=== PATIENT | female | born 1965 | race Caucasian/White ===

== ENCOUNTER 2017-12-06 12:00 | Emergency (ER) | payer OTHER, SELFPAY ==
[2017-12-06 12:01] VITALS: BP 164/111; PULSE 101; RESP 18; TEMP 36.6; O2SAT 98; BMI 38.6
[2017-12-06 12:08] VITALS: BP 161/111; PULSE 101; RESP 14; O2SAT 99
--- NOTE | 2017-12-06 12:12 | RAD_ITS ---
STUDY: X-RAY - LEFT KNEE REASON FOR EXAM: Female, 52 years old. Pain following trauma. TECHNIQUE: 4 view(s) of the knee. COMPARISON: None. FINDINGS: Normal visualized distal femur. Normal visualized proximal tibia and fibula. Normal proximal tibiofibular articulation. Normal medial femorotibial compartment. Normal lateral femorotibial compartment. There is mild degenerative arthrosis of the patellofemoral articulation. Small joint effusion. RAD/Knee 4 or More Views IMPRESSION: Small joint effusion. Electronically Signed: Fernandez Benitez MD at 13:04 EST Tel [phone], Service support ,
--- NOTE | 2017-12-06 12:12 | ED.VISSUMM ---
- ER Visit Summary Date of Service: 12/06/17 Chief Complaint: Left knee injury History of Present Illness: The patient is a 52 F with left knee injury. The patient was in her normal state of health. She states that she was walking out of her shower. She stepped on a wet washcloth. She fell with her left leg twisted underneath her. He felt something pop in the left knee. She really had no significant pain. However, since then, with any attempted bearing weight on the knee she feels like it is giving out. She has been unable to walk because of this feeling of looseness. She denies any other injury. The patient is otherwise healthy. Physical Examination: Exam is relatively unremarkable. There is no gross laxity of the knee. Patient does have pain with extension over the MCL and some pain with palpation on the medial joint line. Anterior and posterior drawer are preserved. There is no effusion. Extension is preserved. She does have normal pulses. Skin is intact. There is no palpable cords. Test Results: [] Emergency Department Course and Treatment: The patient's exam was concerning for an MCL and medial meniscus injury. There is no gross laxity. Her extension is preserved. I did obtain plain films. There was no evidence of acute fracture dislocation. The patient will be placed in a knee immobilizer and given crutches. She will be given a short course of analgesics and orthopedic follow-up. The patient be discharged home. She is comfortable with this plan of care. Treatment Plan: [] Disposition: Discharge Impression: 1. Left knee sprain-suspect medial meniscus and MCL injury This note was generated with [employer] dictation software. It may contain incorrect words, spelling, and punctuation that were not noted in review of the chart prior to signing ED Disposition - Plan for ED Patient: Chief Complaint: Lower Extremity Injury Instructions: ED Sprain Knee Prescriptions: Oxycodone HCl/Acetaminophen [Percocet 5/325] 1 tab PO Q6H PRN PRN 3 Days #12 tab PRN Reason: Pain Referrals: Temo Mcgovern DO [STAFF PHYSICIAN] -
[2017-12-06 13:17] VITALS: BP 148/70; PULSE 85; RESP 14; O2SAT 99
== END 2017-12-06 13:46 | disposition home or self-care (01) ==
LOC: ED 12:18
PROVIDERS: Emergency Provider Emergency Medicine; Family Provider Student in an Organized Health Care Education/Training Program; PCP Student in an Organized Health Care Education/Training Program
DX: S83.92XA Sprain of unspecified site of left knee, initial encounter (principal); W01.0XXA Fall on same level from slipping, tripping and stumbling without subsequent striking against object, initial encounter; Y93.E1 Activity, personal bathing and showering; Y92.002 Bathroom of unspecified non-institutional (private) residence as the place of occurrence of the external cause; Y99.9 Unspecified external cause status; I10 Essential (primary) hypertension
CPT/HCPCS: 73564; 99284

== ENCOUNTER 2021-08-27 13:23 | Emergency (ER) | payer OTHER, SELFPAY ==
[2021-08-27] VITALS (7 sets, daily range): BP systolic 140–168; BP diastolic 90–101; PULSE 89–95; RESP 18–30; TEMP 37.4; O2SAT 83–94; BMI 39.4
--- NOTE | 2021-08-27 13:45 | ED.VIS.DYS ---
HPI History of Present Illness Chief Complaint: Shortness of Breath Informant: patient and family Narrative Narrative: 55-year-old female presents to the emergency department with shortness of breath and low oxygen levels. Patient states that she tested positive for COVID-19 on home test last Sunday. She states that she definitely felt ill on Sunday but earlier in the week also had a headache and some sinus congestion. The patient states her oxygen level was 81% when she woke this morning and is only been able to get it to the mid 80s. She denies any known lung conditions. She has a history of hypertension but has not been taking her Zestoretic because she has not been eating and drinking as well. Cough is nonproductive. She has had some vomiting and diarrhea. Not vaccinated against Covid PFSH PFSH Home Medications lisinopril-hydrochlorothiazide [Zestoretic] 1 ea PO DAILY 08/11/15 [History Last Taken 08/11/15] meloxicam 1 tab PO DAILY 12/06/17 [History Last Taken Unknown] esomeprazole magnesium 40 mg PO DAILY 08/27/21 [History Last Taken Unknown] metoprolol succinate 12.5 mg PO DAILY 08/27/21 [History Last Taken Unknown] Allergy/AdvReac Type Severity Reaction Status Date / Time acetaminophen [From Vicodin] Allergy Hives Verified 08/27/21 13:27 hydrocodone [From Vicodin] Allergy Hives Verified 08/27/21 13:27 Surgical History History of cholecystectomy History of hysterectomy Social History (Updated 08/27/21 @ 13:[address] Lew Gilmore, ) Smoking Status: Never smoker substance use type: does not use ROS ROS ED Constitutional Constitutional ED: Reports chills, fever(s) and sweats; Denies weight loss Eyes Eyes: Denies change in vision or diplopia ENT ENT ED: Reports rhinorrhea; Denies ear pain or sore throat Cardiovascular Cardiovascular: Denies chest pain, orthopnea, palpitations or racing heartbeat Respiratory/Chest Respiratory/Chest: Reports cough, dyspnea and dyspnea on exertion; Denies orthopnea Gastrointestinal Gastrointestinal: Reports diarrhea, nausea and vomiting; Denies abdominal pain Genitourinary Genitourinary ED: Denies dysuria, hematuria or urinary frequency Musculoskeletal Musculoskeletal: Reports myalgias; Denies arthralgias Integumentary Denies abscess or rash Neurologic Neurologic: Reports headache(s); Denies weakness Psychiatric Psychiatric: Denies anxiety, depression, suicidal ideation or suicidal thoughts Endocrine Endocrinology: Denies polydipsia, polyphagia or polyuria Allergic/Immunologic Allergic/Immunologic ED: Denies mouth swelling, tongue swelling or urticaria EXAM Physical Exam Const Vital Signs: 08/27/21 13:25 08/27/21 13:44 08/27/21 13:45 Temperature 99.3 F H 99.3 F H Temperature Source Oral Oral Pulse Rate 89 95 90 Respiratory Rate 18 30 H 23 H Respiratory Effort Respiratory Depth Respiratory Pattern Blood Pressure 140/91 H 152/98 H 152/98 H Blood Pressure Mean 107 116 116 Pulse Ox 87 94 93 Pulse Ox [AMBULATING on Room Air] Pulse Ox [AMBULATING with Oxygen #1] Pulse Ox [AMBULATING with Oxygen #2] Pulse Ox [AMBULATING with Oxygen #3] Pulse Ox [At REST on Room Air] Pulse Ox [At REST with Oxygen] Oxygen Delivery Method Room Air Nasal Cannula Room Air Oxygen Flow Rate (L/min) 2 Oxygen Flow Rate (L/min) [AMBULATING on Room Air] Oxygen Flow Rate (L/min) [AMBULATING with Oxygen #1] Oxygen Flow Rate (L/min) [AMBULATING with Oxygen #2] Oxygen Flow Rate (L/min) [AMBULATING with Oxygen #3] Oxygen Flow Rate (L/min) [At REST on Room Air] Oxygen Flow Rate (L/min) [At REST with Oxygen] 08/27/21 13:51 08/27/21 13:53 08/27/21 15:57 Temperature Temperature Source Pulse Rate 90 Respiratory Rate 26 H Respiratory Effort Short of Breath Respiratory Depth Normal Respiratory Pattern Normal Blood Pressure 152/90 H Blood Pressure Mean 110 Pulse Ox 94 Pulse Ox [AMBULATING on Room Air] 83 Pulse Ox [AMBULATING with Oxygen #1] 88 Pulse Ox [AMBULATING with Oxygen #2] 89 Pulse Ox [AMBULATING with Oxygen #3] 90 Pulse Ox [At REST on Room Air] 87 Pulse Ox [At REST with Oxygen] 93 Oxygen Delivery Method Nasal Cannula Nasal Cannula Oxygen Flow Rate (L/min) 2 2 Oxygen Flow Rate (L/min) [AMBULATING on Room Air] 0 Oxygen Flow Rate (L/min) [AMBULATING with Oxygen #1] 2 Oxygen Flow Rate (L/min) [AMBULATING with Oxygen #2] 3 Oxygen Flow Rate (L/min) [AMBULATING with Oxygen #3] 4 Oxygen Flow Rate (L/min) [At REST on Room Air] 0 Oxygen Flow Rate (L/min) [At REST with Oxygen] 2 Positive well nourished, well developed and obese General Appearance ED: well developed Nutritional Appearance: obese HEENT Reports normocephalic, head/scalp atraumatic, TM's clear and moist mucous membranes atraumatic Tympanic Membrane ED: Yes TM's clear Eyes PERRL and EOMs intact bilaterally Neck no lymphadenopathy, supple and no JVD Resp normal respiratory effort and clear to auscultation bilaterally Cardio regular rate, regular rhythm and no murmurs GI normal to inspection, nondistended, normoactive bowel sounds and non-tender Palpation: soft Back/Spine no CVA tenderness, normal ROM and normal to inspection Extremity normal to inspection General Extremety ED: Negative for edema General Extremity: Negative for edema Neuro oriented x3 and CN's II-XII intact bilaterally Sensorium / Orientation: alert Motor Exam: strength 5/5 throughout Psych mental status grossly normal Mood & Affect: Negative for depressed or tearful Skin no rashes or lesions noted and no wounds MDM MDM MDM Narrative Medical decision making narrative: CBC showed white count 9.2. Glucose 115 AST of 43 creatinine 0.73. CTA of the chest was obtained. This showed diffuse pneumonitis associated with Covid and no pulmonary embolism. Patient received a dose of Decadron. Ambulation testing shows the patient to be 90% on 4 L. The patient does not wish to stay in the hospital. She does not wish remdesivir. She does not wish mechanical ventilation. She would like to have home oxygen set up for her and I can write for some Decadron. Patient was advised that my opinion is that she should stay in the hospital. However the patient appears to have the capacity to make this decision so she can sign out AMA. Lab Data Attestation: I reviewed the patient's lab results. Labs: Laboratory Results - last 24 hr 08/27/21 08/27/21 14:20 14:20 WBC 9.2 RBC 4.58 Hgb 14.5 Hct 41.8 MCV 91.3 MCH 31.7 MCHC 34.7 RDW Std Deviation 42.6 RDW Coeff of Tosin 12.6 Plt Count 265 MPV 9.7 Immature Gran % (Auto) 0.300 Neut % (Auto) 86.5 H Lymph % (Auto) 8.6 L Caroline % (Auto) 4.4 Eos % (Auto) 0.0 Baso % (Auto) 0.2 Absolute Neuts (auto) 7.9 H Absolute Lymphs (auto) 0.79 L Nucleated RBC % 0 Sodium 135 L Potassium 3.5 Chloride 98 Carbon Dioxide 30.0 Anion Gap 7 BUN 16 Creatinine 0.73 Estim Creat Clear Calc 74.31 Est GFR (MDRD) Af Amer 106 Est GFR (MDRD) Non-Af 87 BUN/Creatinine Ratio 21.9 H Glucose 115 H Calcium 8.7 Total Bilirubin 0.70 AST 43 H ALT 33 Alkaline Phosphatase 104 Troponin I High Sens 6 Total Protein 8.0 Albumin 3.3 Globulin 4.7 H Albumin/Globulin Ratio 0.7 L Radiography Diagnostic Testing: Clinical Impression(s) from Imaging Studies Chest CTA 08/27/21 13:47 IMPRESSION: Bilateral multifocal pneumonia. No finding of central or segmental pulmonary embolus. Respiratory motion complicates evaluation for subsegmental pulmonary embolus. Electronically Signed: Bunny Ramos MD at 15:58 EDT Tel , Service support , Discharge Plan Triage Chief Complaint: Shortness of Breath ED Provider: Lew Gilmore Dx/Rx/DC Orders Clinical Impression: COVID-19, Acute hypoxemic respiratory failure due to COVID-19 Instructions: Coronavirus Disease 2019 (COVID-19): Caring for Yourself or Others Prescriptions: No Action lisinopril-hydrochlorothiazide [Zestoretic] 1 EACH tablet 1 ea PO DAILY RF: 0 meloxicam 15 MG tablet 1 tab PO DAILY RF: 0 esomeprazole magnesium 40 mg capsule,delayed release(DR/EC) 40 mg PO DAILY RF: 0 metoprolol succinate 25 mg tablet extended release 24 hr 12.5 mg PO DAILY RF: 0 Primary Care Provider: Jeff Santiago Referrals: Jeff Santiago DO [Primary Care Provider] - Disposition Disposition: Against Medical Advice Capacity Capacity Assessment Tool Can the patient make a choice & communicate that choice?: Yes Can the patient understand benefits, risks and alternatives?: Yes Can the patient make a logical, rational choice?: Yes Is the choice the patient makes consistent w/ their values?: Yes Is there an impending, emergent risk to the patient?: Yes Does the patient have an Advance Directive?: Yes Is there a Surrogate Available?: No i.e. HCPOA: No i.e. close relative (spouse, child, parent, sibling)?: Comment (They are in agreement and support her decision)
--- NOTE | 2021-08-27 13:47 | CT_ITS ---
STUDY: CTA CHEST REASON FOR EXAM: Female, 55 years old. Covid 19 pulmonary embolism RADIATION DOSAGE (If Supplied By Facility): CTDIvol = ( 12.52 ) mGy, DLP = ( 479.21 ) mGycm TECHNIQUE: The examination was performed with the intravenous administration of IV 100mL Isovue-370. Post-processing of the angiographic images was performed, with multiplanar reformation and 3D reconstruction. Individualized dose optimization techniques were used for this CT. COMPARISON: None. FINDINGS: Normal enhancement of the main pulmonary artery and right and left pulmonary arteries. Normal enhancement of the bilateral peripheral pulmonary arteries. Respiratory motion complicates evaluation of the subsegmental pulmonary arteries. There is no demonstrated central or segmental pulmonary embolism. Normal thoracic aorta and visualized great vessels. There is no demonstrated aortic dissection. Normal heart and pericardium. Prominent mediastinal and hilar lymph nodes are probably reactive. Normal visualized trachea and bronchi. The lungs are well expanded. Diffuse groundglass densities throughout both lungs Normal pleura. Normal chest wall structures. Degenerative changes in the thoracic spine. Normal visualized upper abdomen. CT/CTA Chest W/WO Contrast IMPRESSION: Bilateral multifocal pneumonia. No finding of central or segmental pulmonary embolus. Respiratory motion complicates evaluation for subsegmental pulmonary embolus. Electronically Signed: Bunny Ramos MD at 15:58 EDT Tel , Service support ,
[2021-08-27 14:31] LABS: Absolute Lymphocyte Count 0.79 X10^3/uL (0.83-4.51); Absolute Neutrophil Count 7.9 X10^3/uL (2.0-7.7); Basophil# 0.02 X10^3/uL; Basophil% 0.2 % (0-1); Hematocrit 41.8 % (37-47); Hemoglobin 14.5 g/dL (12.0-15.0); Lymphocyte # 0.79 X10^3/ul (0.83-4.51); Lymphocyte % 8.6 % (19-41); Mean Corp Hgb Conc 34.7 g/dL (32-36); Mean Corpuscular Hgb 31.7 pg (27.0-32.0); Mean Corpuscular Volume 91.3 fL (81-99); Mean Platelet Vol. 9.7 fl (6.2-12.0); Monocyte% 4.4 % (0-10); NRBC Flagged by Analyzer 0 % (0-5); Neutrophil # 7.91 X10^3/uL (2.7-7.7); Neutrophil % 86.5 % (47-70); Platelet Count 265 K/mm3 (150-450); RBC Distribution Width CV 12.6 % (11.6-14.6); RBC Distribution Width SD 42.6 fl (35.1-43.9); Red Blood Count 4.58 M/mm3 (4.2-5.4); White Blood Count 9.2 K/mm3 (4.4-11.0)
[2021-08-27 14:51] LABS: ALB/GLOB Ratio 0.7 RATIO (0.9-2.4); AST(SGOT) 43 U/L (15-37); Alanine Aminotransfer ALT/SGPT 33 U/L (13-56); Albumin, Serum 3.3 g/dL (3.2-5.0); Alkaline Phosphatase 104 U/L (45-117); Anion Gap 7 (5-15); BUN 16 mg/dL (7-18); BUN/Creat Ratio 21.9 RATIO (10-20); Calcium,Total 8.7 mg/dL (8.5-10.1); Chloride 98 mmol/L (98-107); Creatinine, Serum 0.73 mg/dL (0.55-1.02); EST Glomerular Filtration Rate 87 mL/min (>60); Est Glom Filt Rate - Afr Amer 106 mL/min (>60); Estimated Creatinine Clearance 74.31 ml/min; Globulin 4.7 g/dL (2.2-4.2); Glucose 115 mg/dL (74-106); Potassium 3.5 mmol/L (3.5-5.1); Sodium Level 135 mmol/L (136-145); Troponin-I HS 6 pg/mL (3.0-54.0)
[2021-08-27] MEDS: dexAMETHasone 4 MG Tablet 6 MG PO (16:30)
--- NOTE | 2021-08-27 16:51 | CM.ED ---
VARUN Note Referral Source : parcel post delivery Reason: Home Oxygen VARUN called Amparo at [facility] and made referral regarding home oxygen 2L/4L with exertion. VARUN spoke with Wil at [facility] and updated him regarding new home oxygen from ED. He will call patient. VARUN faxed referral packet to [facility]. [employer] was scanned into the chart. VARUN sent email to [employer] regarding home oxygen. VARUN updated RN that patient is clear for discharge and that [facility] will call her to schedule time to deliver oxygen. Plan: Home with Home oxygen Donna BABIN
--- NOTE | 2021-08-29 17:44 | CASEMGMT ---
[facility] ED Home O2 Follow-up: This RN CM contacted pt via phone for home O2 follow-up. Pt states she is doing well and has been using her O2. Pt states she has been adjusting the O2 based on her needs. Pt reports her PO to be primarily 89-90% on the O2. Pt states her appetite is decreased but she has been able to eat. Pt handed the phone to her daughter when asked about the decadron. Pt's daughter states they obtained the medication and pt is taking it as prescribed. Pt's daughter reports pt is using the IS, moving around the house, and is overall feeling better. They have not contacted Dr. Santiago's office. Encouraged them to notify Dr. Santiago for follow-up which daughter reports they will do. Pt's daughter states the family has all been ill but are quarantining to the home. Pt's daughter denies any further questions or concerns at this time. Elvira Mccrary RN CM
--- NOTE | 2021-08-31 16:08 | CASEMGMT ---
RNCM DC F/u Call Sigifredo Chilel'd with home oxygen. Called patient's listed cell phone number and answered by her daughter Marcela. States that patient is still doing good. Just got back from f/u appointment with someone at Dr Santiago's office. Has one more day of Decadron. O2 sat 97% on 3L this morning and has now been on 2.5Lpm and stable with O2 sat at 96%. Denies any other issues or concerns and agreeable to additional call if needed. Arcadio Medrano RNCM
== END 2021-08-27 17:04 | disposition left against medical advice (07) ==
PROVIDERS: Emergency Provider Emergency Medicine; PCP Student in an Organized Health Care Education/Training Program
DX: U07.1 COVID-19 (principal); J96.01 Acute respiratory failure with hypoxia; J12.82 Pneumonia due to coronavirus disease 2019; I10 Essential (primary) hypertension; Z79.1 Long term (current) use of non-steroidal anti-inflammatories (NSAID); E66.9 Obesity, unspecified
CPT/HCPCS: 71275; 80053; 84484; 85025; 87426; 99285; Q9967; A4216